=== PATIENT | female | born 1950 | race Caucasian/White ===

== ENCOUNTER → 2022-01-06 10:12 | Outpatient (CLI) | payer MEDICARE, MEDICAID, SELFPAY ==
--- NOTE | 2022-01-06 10:17 | DI.RAD.S_ITS ---
PROCEDURE: [place] JOINT INJECTION MEDIUM RT INDICATIONS: Other specified arthritis, right shoulder COMPARISON: None. TECHNIQUE: The indications, alternatives, benefits, risks, and complications of the procedure were explained to the patient. Written informed consent was obtained and placed in the chart. The patient was placed in an appropriate position on the fluoroscopy table, and a site was chosen for percutaneous access under fluoroscopic guidance. The site was prepped and draped in a sterile fashion. Local anesthetic was administered using a 1% lidocaine solution. A hypodermic or spinal needle was then used to access the symptomatic joint. Intra-articular location of the needle tip was confirmed by injecting a small amount of contrast, followed by steroid administration. The needle was then withdrawn, and a bandage applied to the puncture site. FINDINGS: Joint injected: Right glenohumeral joint Medications injected: 3 cc of 40 mg/mL Kenalog and 0.5% Ropivacaine mixture. Patient's pain before injection: 7 out of 10. Patient's pain after injection: 2 out of 10. Complications: None. IMPRESSION: Successful fluoroscopically guided administration of steroid and anaesthetic solution into the right glenohumeral joint. Dictated by: Maikel Mckeon M.D. on 01/06/2022 at 11:19 Approved by: Maikel Mckeon M.D. on 01/06/2022 at 11:19
== END ==
PROVIDERS: PCP Family Medicine; Referring Provider Orthopaedic Surgery; Visit Provider Orthopaedic Surgery
DX: M13.811 Other specified arthritis, right shoulder (principal)
CPT/HCPCS: 20605; 77002

== ENCOUNTER → 2023-04-24 10:35 | Outpatient (CLI) | payer MEDICARE, MEDICAID, SELFPAY ==
--- NOTE | 2023-04-24 10:39 | DI.RAD.S_ITS ---
PROCEDURE: [place] JOINT INJECTION MEDIUM RT INDICATIONS: Other specified arthritis, right shoulder COMPARISON: [facility] Outside Film, CR, XR SHOULDER 2+ VIEWS RIGHT, 11/20/2022, 10:02. TECHNIQUE: The indications, alternatives, benefits, risks, and complications of the procedure were explained to the patient. Written informed consent was obtained and placed in the chart. The patient was placed in an appropriate position on the fluoroscopy table, and a site was chosen for percutaneous access under fluoroscopic guidance. The site was prepped and draped in a sterile fashion. Local anesthetic was administered using a 1% lidocaine solution. A hypodermic or spinal needle was then used to access the symptomatic joint. Intra-articular location of the needle tip was confirmed by injecting a small amount of contrast, followed by steroid administration. The needle was then withdrawn, and a bandage applied to the puncture site. FINDINGS: Joint injected: Right shoulder Medications injected: 6 mL of 40 mg/mL Kenalog and 0.5% Ropivacaine mixture. Patient's pain before injection: 8-9 out of 10. Patient's pain after injection: 1-2 out of 10. Complications: None. IMPRESSION: Successful fluoroscopically guided administration of steroid and anaesthetic solution into the right shoulder joint. Dictated by: Lyndsey Booker M.D. on 04/24/2023 at 11:28 Approved by: Lyndsey Booker M.D. on 04/24/2023 at 11:29
[2023-04-24] MEDS: ROPIVACAINE 0.5% PF 5 MG/ML 20ML VIAL 20 ML INJ (11:31)
[2023-04-24] MEDS: LIDOCAINE 1% 20 ML INJ (11:31)
[2023-04-24] MEDS: TRIAMCINOLONE 40 MG/ML VIAL INTRA-ARTI (11:32)
== END ==
PROVIDERS: PCP Internal Medicine; Referring Provider Orthopaedic Surgery; Visit Provider Orthopaedic Surgery
DX: M13.811 Other specified arthritis, right shoulder (principal)
CPT/HCPCS: 20605; 77002

== ENCOUNTER → 2023-11-01 09:45 | Outpatient (CLI) | payer MEDICARE, MEDICAID, SELFPAY ==
--- NOTE | 2023-11-01 09:46 | DI.RAD.S_ITS ---
PROCEDURE: [place] JOINT INJECTION MEDIUM RT INDICATIONS: ARTHRITIS OF RT GLENOHUMERAL JOINT COMPARISON: [facility], , [place] JOINT INJECTION MEDIUM RT, 04/24/2023, 12:02. TECHNIQUE: The indications, alternatives, benefits, risks, and complications of the procedure were explained to the patient. Written informed consent was obtained and placed in the chart. The patient was placed in an appropriate position on the fluoroscopy table, and a site was chosen for percutaneous access under fluoroscopic guidance. The site was prepped and draped in a sterile fashion. Local anesthetic was administered using a 1% lidocaine solution. A hypodermic or spinal needle was then used to access the symptomatic joint. Intra-articular location of the needle tip was confirmed by injecting a small amount of contrast, followed by steroid administration. The needle was then withdrawn, and a bandage applied to the puncture site. FINDINGS: Joint injected: Right shoulder Medications injected: 6 mL of 40 mg/mL Kenalog and 0.5% Ropivacaine mixture. Patient's pain before injection: 10 out of 10. Patient's pain after injection: 2 out of 10. Complications: None. IMPRESSION: Successful fluoroscopically guided administration of steroid and anaesthetic solution into the right glenohumeral joint. Dictated by: Marcio Seth M.D. on 11/01/2023 at 11:13 Approved by: Marcio Seth M.D. on 11/01/2023 at 11:13
[2023-11-01] MEDS: ROPIVACAINE 0.5% PF 5 MG/ML 20ML VIAL 3 ML INJ (11:34)
[2023-11-01] MEDS: LIDOCAINE 1% 20 ML INJ (11:34)
[2023-11-01] MEDS: TRIAMCINOLONE 40 MG/ML VIAL INTRA-ARTI (11:35)
== END ==
PROVIDERS: PCP Internal Medicine; Referring Provider Orthopaedic Surgery; Visit Provider Orthopaedic Surgery
DX: M13.811 Other specified arthritis, right shoulder (principal)
CPT/HCPCS: 20605; 77002